=== PATIENT | female | born 1975 | race Caucasian/White ===

== ENCOUNTER 2017-12-15 16:39 | Emergency (ER) | payer MEDICAID | END 2017-12-15 18:00 | disposition left against medical advice (07) | LOC: ER 16:39 | DX: Z53.21 Procedure and treatment not carried out due to patient leaving prior to being seen by health care provider (principal); R42 Dizziness and giddiness ==

== ENCOUNTER 2018-02-26 09:36 | Emergency (ER) | payer SELFPAY ==
--- NOTE | 2018-02-26 10:56 | ER Document Report ---
ED Suture/Wound Recheck - General Chief Complaint: Staple Removal Stated Complaint: SUTURE REMOVAL Time Seen by Provider: 02/26/18 09:47 Mode of Arrival: Ambulatory Information source: Patient TRAVEL OUTSIDE OF THE [place].S. IN LAST 30 DAYS: No - HPI Patient complains to provider of: STAPLE REMOVAL Notes: Patient is here to have emilie removed. The patient had brain cancer and had brain surgery several weeks ago. She has since followed up with her brain surgeon and had the emilie from her main incision removed. She states that there are 3 emilie left in another incision in the longer part of her hair that they forgot to take out and she is here to have them removed. She denies any fevers. She denies any drainage. No pain. She denies any nausea, vomiting , diarrhea. Patient does report that she is having some anxiety but states that she has been feeling better as far as her anxiety goes and she states that that is why her heart rate has been high. She denies any other complaints at this time. - Related Data Allergies/Adverse Reactions: No Known Allergies Allergy (Verified 06/18/15 16:56) Past Medical History - Social History Smoking Status: Former Smoker Chew tobacco use (# tins/day): No Frequency of alcohol use: None Drug Abuse: None Family History: Arthritis, CAD, CVA, DM, Hyperlipidemia, Hypertension, Malignancy, Thyroid Disfunction Patient has suicidal ideation: No Patient has homicidal ideation: No - Past Medical History Cardiac Medical History: Denies: Hx Heart Attack, Hx Hypertension Pulmonary Medical History: Reports: Hx Asthma, Hx Bronchitis, Hx Pneumonia Denies: Hx COPD Neurological Medical History: Reports: Hx Migraine. Denies: Hx Seizures Renal/ Medical History: Denies: Hx Peritoneal Dialysis Musculoskeltal Medical History: Denies Hx Arthritis Psychiatric Medical History: Reports: Hx Anxiety, Hx Attention Deficit Hyperactivity Disorder, Hx Depression - Major depressive d/o Traumatic Medical History: Reports: Hx Traumatic Brain Injury Past Surgical History: Reports: Hx Adenoidectomy, Hx Hysterectomy - 09/29/12, Hx Tonsillectomy - addenoids - Immunizations Immunizations up to date: No Hx Diphtheria, Pertussis, Tetanus Vaccination: No - unsure Review of Systems - Review of Systems -: Yes All other systems reviewed and negative Physical Exam - Vital signs Vitals: Temp Pulse Resp BP Pulse Ox 98.5 F 133 H 18 116/61 98 02/26/18 09:41 02/26/18 09:41 02/26/18 09:41 02/26/18 09:41 02/26/18 09:41 - Notes Notes: GENERAL: alert, cooperative, nontoxic, no distress. HEAD: normocephalic, atraumatic EYES: conjunctiva pink without discharge, no external redness or swelling. EARS: no external swelling, no external redness NOSE: atraumatic, no external swelling MOUTH/THROAT: mucous membranes moist and pink NECK: soft, supple, full range of motion, no meningismus. CHEST: no distress, lungs clear and equal throughout. No wheezing, rales, rhonchi. CARDIAC: regular rhythm, tachycardia, no murmur, normal capillary refill, normal pulses. BACK: full range of motion, no CVA tenderness. EXTREMITIES: full range of motion of all extremities. No redness, no swelling. NEURO: alert and oriented 3, no focal deficits, full range of motion of all extremities. PYSCH: appropriate mood, affect. Patient is cooperative. SKIN: pink, warm, dry, no rash. 3 emilie to the posterior scalp. Wound is well-healed. There is no surrounding redness or drainage. No tenderness. Course - Re-evaluation Re-evalutation: 02/26/18 10:54 Patient is nontoxic appearing with stable vitals. Here to have 3 emilie removed from the back of her head. She had brain cancer and had surgery several weeks ago. She had emilie from her main incision removed but they accidentally forgot to remove 3 emilie in the posterior aspect of her head. No complaints. Wound is well-healed. [place] were removed without difficulty. Patient is noted to be tachycardic, she states that she has been very anxious ever since having the surgery and the diagnosis and that this is the reason for her tachycardia. She denies any chest pain or shortness of breath at this time. She does not want any further workup regarding the tachycardia. Patient will be instructed to follow-up with her doctor at the next available appointment, follow-up sooner for worsening pain, fever, numbness, tingling, weakness, any further concerns. The patient's emergency department workup and current diagnosis were explained to the patient and or family. Follow-up instructions were provided. Medications if prescribed were discussed. Instructions for when to return to the emergency department including specific worrisome symptoms were discussed with the patient and/or family. - Vital Signs Vital signs: Temp Pulse Resp BP Pulse Ox 98.5 F 133 H 18 116/61 98 02/26/18 09:41 02/26/18 09:41 02/26/18 09:41 02/26/18 09:41 02/26/18 09:41 Procedures - Additional Procedures STAPLE REMOVAL Notes: 02/26/18 10:56 3 emilie removed from the posterior scalp. Patient tolerated procedure well with no immediate complications. Discharge - Discharge Clinical Impression: Encounter for staple removal Condition: Stable Disposition: HOME, SELF-CARE Instructions: Staple Removal ([facility]) Additional Instructions: Follow-up with your primary care doctor and your neurosurgeon at the next available appointment. Follow-up sooner for worsening symptoms, high fever, pain, drainage, persistent vomiting, or for any further concerns.
[2018-02-26 11:02] VITALS: BP 117/62
== END 2018-02-26 11:12 | disposition home or self-care (01) ==
LOC: ER 09:36
DX: Z48.02 Encounter for removal of sutures (principal); Z98.890 Other specified postprocedural states; Z87.891 Personal history of nicotine dependence; J45.909 Unspecified asthma, uncomplicated
CPT/HCPCS: 99282

== ENCOUNTER 2018-02-27 14:54 | Emergency (ER) | payer MEDICAID ==
[2018-02-27] MEDS ORDERED: VANCOMYCIN HCL INJ 1000 MG VIAL IV ONE (15:04)
[2018-02-27] MEDS ORDERED: PIPERACILLIN/TAZOBACTAM 4.5 GM VIAL IV ONE (15:04)
[2018-02-27] MEDS ORDERED: LORAZEPAM INJ 2 MG/1 ML VIAL IV ONE ×4 (15:24→19:17)
[2018-02-27] MEDS ORDERED: LIDOCAINE 1% INJ-PF (10 MG/ML) 30 ML SDV INJ ONE (15:33)
--- NOTE | 2018-02-27 15:33 | ER Document Report ---
ED General - General Stated Complaint: FEVER Mode of Arrival: Medic Information source: Emergency Med Personnel, Outside Facility Records TRAVEL OUTSIDE OF THE U.S. IN LAST 30 DAYS: No - HPI Notes: 42-year-old female presents via EMS today who is obtunded with a fever of 106 for evaluation. [facility] is where pt had brain surgery for removal of a glioblastoma approximately 3-4 weeks ago, was seen in the ER yesterday for staple removal is acting normally. Friend stopped by her house today to check on her, states that she was not "acting right" per EMS reports. She called 911. Patient given 1 g of Tylenol rectally transport to hospital by EMS. To obtain history due to patient's not being able to speak at this time. There isn' t any family or friends to speak with about her current medical condition - Related Data Allergies/Adverse Reactions: No Known Allergies Allergy (Verified 06/18/15 16:56) Past Medical History - Social History Smoking Status: Unknown if Ever Smoked Family History: Arthritis, CAD, CVA, DM, Hyperlipidemia, Hypertension, Malignancy, Thyroid Disfunction - Past Medical History Cardiac Medical History: Denies: Hx Heart Attack, Hx Hypertension Pulmonary Medical History: Reports: Hx Asthma, Hx Bronchitis, Hx Pneumonia Denies: Hx COPD Neurological Medical History: Reports: Hx Migraine. Denies: Hx Seizures Renal/ Medical History: Denies: Hx Peritoneal Dialysis Musculoskeltal Medical History: Denies Hx Arthritis Psychiatric Medical History: Reports: Hx Anxiety, Hx Attention Deficit Hyperactivity Disorder, Hx Depression - Major depressive d/o Traumatic Medical History: Reports: Hx Traumatic Brain Injury Past Surgical History: Reports: Hx Adenoidectomy, Hx Hysterectomy - 09/29/12, Hx Tonsillectomy - addenoids - Immunizations Immunizations up to date: No Hx Diphtheria, Pertussis, Tetanus Vaccination: No - unsure Review of Systems - Review of Systems -: Yes ROS unobtainable due to patient's medical condition Physical Exam - Vital signs Vitals: Temp Pulse Resp BP Pulse Ox 100.5 F H 138 H 22 H 140/84 H 98 02/27/18 15:05 02/27/18 15:05 02/27/18 15:05 02/27/18 15:05 02/27/18 15:05 - Notes Notes: PHYSICAL EXAMINATION: GENERAL: obtunded HEAD: Atraumatic, normocephalic. EYES: Pupils equal round and reactive to light, conjunctiva are normal. ENT: Nares patent, oropharynx clear without exudates. Moist mucous membranes. NECK: Normal range of motion, supple without lymphadenopathy LUNGS: Breath sounds clear to auscultation bilaterally and equal. No wheezes rales or rhonchi. HEART: Tachycardia rhythm without murmurs ABDOMEN: Soft, nontender, nondistended abdomen. No guarding, no rebound. No masses appreciated. Female : deferred Musculoskeletal: Normal range of motion, no pitting or edema. No cyanosis. NEUROLOGICAL: Obtunded, PERRL. Responding to noxious stimuli omly GCS 7, when she yelling, GCS 12 PSYCH: Normal mood, normal affect. SKIN: Warm, Dry, normal turgor, no rashes or lesions noted. - Neurological Neuro grossly intact: No Cognition: Other - obtunded [place] Coma Scale Eye Opening: To Pain [place] Coma Scale Verbal: None Teto Coma Scale Motor: Withdraws to Pain Teto Coma Scale Total: 7 Speech: Other - spoke clearly not on command, only when she sat up and yelled "God, God, God". Course - Re-evaluation Re-evalutation: 02/27/18 18:30 42-year-old female who presents status post brain surgery for glioblastoma resection via EMS who is obtunded on initial exam. Patient takes home medications of Ambien, Klonopin, hydrocodone and dexamethasone. Due to GCS of 7 , Dr Jarred Manrique, ER attending at bedside to assist in evaluation of patient CT head orderded. Pt Appears to be seizing. 4mg of ativan orderd. patient is being set up to go down to CT for scan, patient suddenly sat up and yelled "God , God, God" and started to get out of bed. Patient started to spit and kick. Another 2 mg IVP of Ativan ordered by Dr. Manrique verbally. Pt still trying to fight and kick. Patient trying to get out of bed. Soft restraints placed to keep patient in bed so she is not on herself or others. After reassessment 10 minutes later, still thrashing around in bed, 2 mg of Ativan given to help with agitation to use. Patient given 150 mg of Keppra IV. Patient still agitated, is not sedated enough to get a CT of her head. Although 5 mg given IV 10 mg of Decadron ordered. After approximately 40 minutes, patient was sedated enough to get a CT of her head. 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 Lactic is 5.6, CBC with a white count of 8.6. Venous blood glass gas shows respiratory alkalosis. Urinalysis shows leukocytosis. Patient given Zosyn and vancomycin coverage due to concern of sepsis with a fever of 103. With a lactic of 5.6 with a lactic of 5.6. [facility] were patient had here brain surgery performed. [facility] contacted at 1640, spoke with Dr. Gomez Hill, neurosurgeon at [facility] stated he will accept patient for transfer into the neuro ICU, stated she likely was having a seizure and is questionable of any abscess regrowth of a neoplasm, agreed with dosing her 150 mg of Keppra and Ativan and Haldol for agitation in order to get CT. Advised against lumbar puncture, will evaluate patient when she arrives at [facility]. Emtala formed and signed. pt will be tranferring to [facility] at approximately 1930 - Vital Signs Vital signs: Temp Pulse Resp BP Pulse Ox 97.6 F 98 17 107/77 98 02/27/18 21:22 02/27/18 17:53 02/27/18 21:22 02/27/18 21:22 02/27/18 21:22 - Laboratory Result Diagrams: 02/27/18 15:16 02/27/18 15:16 Laboratory results interpreted by me: 02/27/18 02/27/18 02/27/18 15:15 15:16 15:16 Hgb 11.9 L Hct 35.7 L RDW 17.9 H Band Neutrophils % 8 H Metamyelocytes % 2 H VBG pH VBG pCO2 Sodium 136.7 L Carbon Dioxide 20 L Glucose 259 H POC Glucose 242 H Lactic Acid Direct Bilirubin 0.5 H ALT 68 H Total Protein 5.7 L Urine Glucose (UA) Urine Ketones Urine Blood 02/27/18 02/27/18 02/27/18 15:16 15:40 16:25 Hgb Hct RDW Band Neutrophils % Metamyelocytes % VBG pH 7.46 H VBG pCO2 32.6 L Sodium Carbon Dioxide Glucose POC Glucose Lactic Acid 5.7 H Direct Bilirubin ALT Total Protein Urine Glucose (UA) >=500 H Urine Ketones TRACE H Urine Blood SMALL H 02/27/18 19:13 Hgb Hct RDW Band Neutrophils % Metamyelocytes % VBG pH VBG pCO2 Sodium Carbon Dioxide Glucose POC Glucose Lactic Acid 2.3 H Direct Bilirubin ALT Total Protein Urine Glucose (UA) Urine Ketones Urine Blood - EKG Interpretation by Me EKG shows normal: Sinus rhythm Rate: Normal Rhythm: NSR Discharge - Discharge Clinical Impression: Seizure-like activity, Neoplasm of brain Condition: Stable Disposition: [facility]
[2018-02-27 15:40] LABS: HEMATOCRIT 35.7 % (36.0-47.0); HEMOGLOBIN 11.9 g/dL (12.0-15.5); MEAN CORPUSCULAR HEMOGLOBIN 30.9 pg (27.0-33.4); MEAN CORPUSCULAR HGB CONC 33.3 g/dL (32.0-36.0); MEAN CORPUSCULAR VOLUME 93 fl (80-97); PLATELET COUNT 378 10^3/uL (150-450); RED BLOOD COUNT 3.85 10^6/uL (3.72-5.28); RED CELL DISTRIBUTION WIDTH 17.9 % (11.5-14.0); WHITE BLOOD COUNT 8.8 10^3/uL (4.0-10.5)
[2018-02-27] MEDS: NORMAL SALINE 1000 ML 1,000 ML IV PRN ×2 (15:46→17:26)
[2018-02-27] MEDS ORDERED: HALOPERIDOL LACTATE INJ 5 MG/1 ML VIAL IV ONE ×2 (15:52→19:17)
[2018-02-27] MEDS ORDERED: DEXAMETHASONE SOD PHOS INJ 10 MG/1 ML VIAL IV ONE (15:53)
[2018-02-27 15:55] LABS: ALANINE AMINOTRANSFERASE 68 U/L (9-52); ALBUMIN 3.6 g/dL (3.5-5.0); ALKALINE PHOSPHATASE 41 U/L (38-126); ANION GAP 16 (5-19); ASPARTATE AMINO TRANSFERASE 35 U/L (14-36); BILIRUBIN,DIRECT 0.5 mg/dL (0.0-0.4); BILIRUBIN,TOTAL 0.6 mg/dL (0.2-1.3); BLOOD UREA NITROGEN 18 mg/dL (7-20); CALCIUM 8.5 mg/dL (8.4-10.2); CARBON DIOXIDE 20 mmol/L (22-30); CHLORIDE 101 mmol/L (98-107); GLUCOSE 259 mg/dL (75-110); SODIUM 136.7 mmol/L (137-145); TOTAL PROTEIN 5.7 g/dL (6.3-8.2)
[2018-02-27 15:58] LABS: ABSOLUTE LYMPHOCYTES# (MANUAL) 1.8 10^3/uL (0.5-4.7); ABSOLUTE MONOCYTES # (MANUAL) 0.3 10^3/uL (0.1-1.4); ABSOLUTE NEUTROPHILS# (MANUAL) 6.7 10^3/uL (1.7-8.2); BAND NEUTROPHILS % (MANUAL) 8 % (3-5); BASOPHILS % (MANUAL) 0 % (0-2); EOSINOPHILS % (MANUAL) 0 % (0-6); INTERNATIONAL RATION (INR) 0.84; LYMPHOCYTES % (MANUAL) 21 % (13-45); METAMYELOCYTES % (MANUAL) 2 % (0); MONOCYTES % (MANUAL) 3 % (3-13); PROTHROMBIN TIME 11.9 SEC (11.4-15.4); SEGMENTED NEUTROPHILS % (MAN) 66 % (42-78); TOTAL CELLS COUNTED 100
[2018-02-27 15:59] LABS: APPEARANCE,URINE CLEAR; BILIRUBIN,URINE NEGATIVE (NEGATIVE); COLOR,URINE YELLOW; GLUCOSE, URINE >=500 mg/dL (NEGATIVE); KETONES,URINE TRACE mg/dL (NEGATIVE); LEUKOCYTE ESTERASE,URINE NEGATIVE (NEGATIVE); NITRITE,URINE NEGATIVE (NEGATIVE); PROTEIN,URINE NEGATIVE (NEGATIVE); URINE SPECIFIC GRAVITY 1.015; UROBILINOGEN,URINE NEGATIVE mg/dL (<2.0)
[2018-02-27 16:01] LABS: TOXIC GRANULATION SLIGHT
[2018-02-27 16:02] LABS: ANISOCYTOSIS 1+; PLATELET COMMENT ADEQUATE; PLATELET LARGE PRESENT; POLYCHROMASIA SLIGHT
[2018-02-27] MEDS ORDERED: LEVETIRACETAM INJ/PF 500 MG/5 ML SDV IV ONE (16:34)
[2018-02-27 16:35] LABS: VENOUS BLOOD BASE EXCESS -0.8 mmol/L; VENOUS BLOOD HCO3 22.5 mmol/L (20-32); VENOUS BLOOD PCO2 32.6 mmHg (35-63); VENOUS BLOOD PH 7.46 (7.30-7.42)
--- NOTE | 2018-02-27 17:06 | RADIOLOGY REPORT (SQ) ---
EXAM DESCRIPTION: CHEST SINGLE VIEW COMPLETED DATE/TIME: 02/27/2018 4:49 pm REASON FOR STUDY: fever COMPARISON: 06/18/2015 EXAM PARAMETERS: NUMBER OF VIEWS: One view. TECHNIQUE: Single frontal radiographic view of the chest acquired. RADIATION DOSE: NA LIMITATIONS: None. FINDINGS: LUNGS AND PLEURA: No opacities, masses or pneumothorax. No pleural effusion. MEDIASTINUM AND HILAR STRUCTURES: No masses. Contour normal. HEART AND VASCULAR STRUCTURES: Heart normal in size. Normal vasculature. BONES: No acute findings. HARDWARE: None in the chest. OTHER: No other significant finding. IMPRESSION: NO ACUTE RADIOGRAPHIC FINDING IN THE CHEST. TECHNICAL DOCUMENTATION: JOB ID: [id number] [employer]- All Rights Reserved Reading location - IP/workstation name: [email or web address]
--- NOTE | 2018-02-27 17:12 | RADIOLOGY REPORT (SQ) ---
EXAM DESCRIPTION: CT HEAD WITHOUT COMPLETED DATE/TIME: 02/27/2018 4:51 pm REASON FOR STUDY: AMS COMPARISON: 07/16/2013 TECHNIQUE: Axial images acquired through the brain without intravenous contrast. Images reviewed wi th bone, brain and subdural windows. Additional sagittal and coronal reconstructions were generated. Images stored on PACS. All CT scanners at this facility use dose modulation, iterative reconstruction, and/or weight based d osing when appropriate to reduce radiation dose to as low as reasonably achievable (ALARA). [facility]: Dose Right [facility]: CareDose [facility]: Dose Right [facility]: Teradose 4D [facility]: [employer] RADIATION DOSE: CT Rad equipment meets quality standard of care and radiation dose reduction techniq ues were employed. CTDIvol: 53.2 mGy. DLP: 964 mGy-cm. mGy. LIMITATIONS: None. FINDINGS: VENTRICLES: Normal size and contour. CEREBRUM: There is an area of decreased attenuation in the deep right alevism lobe. There is mild ass ociated mass effect. This is best seen on image 15. Otherwise, there is normal kramer/ white different iation. CEREBELLUM: No masses. No hemorrhage. No alteration of density. No evidence for acute infarction. EXTRAAXIAL SPACES: No fluid collections. No masses. ORBITS AND GLOBE: No intra- or extraconal masses. Normal contour of globe without masses. CALVARIUM: Craniotomy changes are present in the right temporal area. PARANASAL SINUSES: No fluid or mucosal thickening. SOFT TISSUES: No mass or hematoma. OTHER: No other significant finding. IMPRESSION: Surgical changes with an area of decreased attenuation in the right temporal lobe. Ther e is associated mass effect medially concerning for neoplasm. It would be helpful to be able to comp are this with some recent imaging studies. EVIDENCE OF ACUTE STROKE: NO. COMMENT: Quality ID # [id number]: Final reports with documentation of one or more dose reduction techniques (e.g., Automated exposure control, adjustment of the mA and/or kV according to patient size, use of iterative reconstruction technique) TECHNICAL DOCUMENTATION: JOB ID: [id number] [employer]- All Rights Reserved Reading location - IP/workstation name: [email or web address]
--- NOTE | 2018-02-27 18:25 | EKG REPORT ---
SEVERITY:- ABNORMAL ECG - SINUS TACHYCARDIA PROBABLE LEFT ATRIAL ABNORMALITY BORDERLINE LEFT AXIS DEVIATION BORDERLINE T WAVE ABNORMALITIES : Confirmed by: Jhonatan Staples MD 27-Feb-2018 18:24:57
--- NOTE | 2018-02-27 20:39 | ER Document Report ---
Doctor's Note Notes: 02/27/18 20:36 Patient examined immediately at request of BRASS BURNISHER for AMS and concern. Pt s/p brain sx for brain tumor. Patient was erratic. Pt with repetitive speech and tremors. Possiblly seizing. Verbal order for ativan was given. Soft restraints ordered. Keppra advised. Please see BRASS BURNISHER notes for further details.
[2018-02-27 21:25] VITALS: BP 107/77
[2018-02-27] MEDS ORDERED: LEVETIRACETAM 1500 MG/NACL-ISO 1,500 MG/100 ML RTUPB IV SCH (22:00)
== END 2018-02-27 21:44 | disposition short-term general hospital (02) ==
LOC: ER 14:54
DX: R56.9 Unspecified convulsions (principal); D43.2 Neoplasm of uncertain behavior of brain, unspecified; R50.9 Fever, unspecified; Z87.820 Personal history of traumatic brain injury; Z90.710 Acquired absence of both cervix and uterus
CPT/HCPCS: 93005; 96376; 99285; 96361; 96375; 96365; 96367; 36415; 87040; 87086; 82962; 85025; 85610; 80053; 81001; 82803; 83605; 71045; 70450; 93010; J1630; J2060; J7030; J3370; J1953; J1100; J2543

== ENCOUNTER 2018-06-27 06:12 | Emergency (ER) | payer MEDICAID ==
[2018-06-27] MEDS ORDERED: NORMAL SALINE 500 ML IV ONE (07:21)
[2018-06-27] MEDS ORDERED: LIDOCAINE 5% (700 MG) TRANSDERMAL ADH..PATCH TP ONE (07:22)
[2018-06-27 07:59] LABS: ABSOLUTE EOSINOPHILS # (AUTO) 0.1 10^3/uL (0.0-0.6); ABSOLUTE LYMPHOCYTES (AUTO) 1.6 10^3/uL (0.5-4.7); ABSOLUTE MONOCYTES (AUTO) 0.3 10^3/uL (0.1-1.4); ABSOLUTE NEUT (AUTO) 3.3 10^3/uL (1.7-8.2); BASOPHILS % (AUTO) 0.8 % (0-2); EOSINOPHILS % (AUTO) 1.5 % (0-6); HEMATOCRIT 35.2 % (36.0-47.0); HEMOGLOBIN 11.9 g/dL (12.0-15.5); LYMPHOCYTES % (AUTO) 30.5 % (13-45); MEAN CORPUSCULAR HEMOGLOBIN 32.8 pg (27.0-33.4); MEAN CORPUSCULAR HGB CONC 33.8 g/dL (32.0-36.0); MEAN CORPUSCULAR VOLUME 97 fl (80-97); MONOCYTES % (AUTO) 5.9 % (3-13); PLATELET COUNT 316 10^3/uL (150-450); RED BLOOD COUNT 3.62 10^6/uL (3.72-5.28); RED CELL DISTRIBUTION WIDTH 20.3 % (11.5-14.0); SEGMENTED NEUTROPHILS % (AUTO) 61.3 % (42-78); TOTAL CELLS COUNTED % (AUTO) 100 %; WHITE BLOOD COUNT 5.3 10^3/uL (4.0-10.5)
[2018-06-27 08:12] LABS: AMORPHOUS SEDIMENT,URINE TRACE /HPF; APPEARANCE,URINE CLOUDY; BILIRUBIN,URINE NEGATIVE (NEGATIVE); COLOR,URINE YELLOW; GLUCOSE, URINE NEGATIVE (NEGATIVE); KETONES,URINE NEGATIVE (NEGATIVE); LEUKOCYTE ESTERASE,URINE TRACE (NEGATIVE); NITRITE,URINE NEGATIVE (NEGATIVE); PROTEIN,URINE NEGATIVE (NEGATIVE); URINE SPECIFIC GRAVITY 1.014; UROBILINOGEN,URINE NEGATIVE mg/dL (<2.0)
[2018-06-27 08:19] LABS: ALANINE AMINOTRANSFERASE 58 U/L (9-52); ALBUMIN 3.1 g/dL (3.5-5.0); ALKALINE PHOSPHATASE 69 U/L (38-126); ANION GAP 5 (5-19); ASPARTATE AMINO TRANSFERASE 33 U/L (14-36); BILIRUBIN,DIRECT 0.2 mg/dL (0.0-0.4); BILIRUBIN,TOTAL 0.4 mg/dL (0.2-1.3); BLOOD UREA NITROGEN 13 mg/dL (7-20); CALCIUM 8.6 mg/dL (8.4-10.2); CARBON DIOXIDE 33 mmol/L (22-30); CHLORIDE 102 mmol/L (98-107); CREATINE KINASE < 20 U/L (30-135); GLUCOSE 92 mg/dL (75-110); LIPASE 97.1 U/L (23-300); POTASSIUM 3.1 mmol/L (3.6-5.0); TOTAL PROTEIN 5.8 g/dL (6.3-8.2)
[2018-06-27] MEDS ORDERED: ACETAMINOPHEN 325 MG TABLET PO ONE (08:21)
[2018-06-27] MEDS ORDERED: IPRATROPIUM/ALBUTEROL 0.5-2.5 MG/3 ML AMPUL NEB ONE (08:29)
--- NOTE | 2018-06-27 09:38 | ER Document Report ---
ED General - General Chief Complaint: Leg Pain Stated Complaint: BACK PAIN Time Seen by Provider: 06/27/18 06:37 TRAVEL OUTSIDE OF THE [place].S. IN LAST 30 DAYS: No - HPI Patient complains to provider of: Back pain leg pain Notes: There is coming in for back pain. Patient states has history of neck pain no acute trauma. Patient also coming in for leg pain. Patient was recently seen at [facility] diagnosed with cellulitis that she was placed on clindamycin approximately 5-7 days ago. Patient states that her legs continue to hurt. Denies any fevers chills nausea vomiting diarrhea. Patient does have a history of a tumor in the brain. Patient resides at a assisted living facility in [place] however his in area visiting her family members. There are no family members at bedside. - Related Data Allergies/Adverse Reactions: No Known Allergies Allergy (Verified 06/18/15 16:56) Past Medical History - Social History Smoking Status: Current Some Day Smoker Chew tobacco use (# tins/day): No Drug Abuse: None Family History: Arthritis, CAD, CVA, DM, Hyperlipidemia, Hypertension, Malignancy, Thyroid Disfunction Patient has suicidal ideation: No Patient has homicidal ideation: No - Past Medical History Cardiac Medical History: Denies: Hx Heart Attack, Hx Hypertension Pulmonary Medical History: Reports: Hx Asthma, Hx Bronchitis, Hx Pneumonia Denies: Hx COPD Neurological Medical History: Reports: Hx Migraine. Denies: Hx Seizures Renal/ Medical History: Denies: Hx Peritoneal Dialysis Musculoskeletal Medical History: Denies Hx Arthritis Psychiatric Medical History: Reports: Hx Anxiety, Hx Attention Deficit Hyperactivity Disorder, Hx Depression - Major depressive d/o Traumatic Medical History: Reports: Hx Traumatic Brain Injury Past Surgical History: Reports: Hx Adenoidectomy, Hx Hysterectomy, Hx Tonsillectomy - addenoids - Immunizations Immunizations up to date: No Hx Diphtheria, Pertussis, Tetanus Vaccination: No - unsure Review of Systems - Review of Systems Constitutional: No symptoms reported EENT: No symptoms reported Cardiovascular: No symptoms reported Respiratory: No symptoms reported Gastrointestinal: No symptoms reported Genitourinary: No symptoms reported Female Genitourinary: No symptoms reported Musculoskeletal: Back pain Skin: Other - Cellulitic process in the left leg Hematologic/Lymphatic: No symptoms reported Neurological/Psychological: No symptoms reported Physical Exam - Vital signs Vitals: Temp Pulse Resp BP Pulse Ox 98.2 F 100 20 128/60 H 96 06/27/18 06:18 06/27/18 06:18 06/27/18 06:18 06/27/18 06:18 06/27/18 06:18 Interpretation: Normal - General General appearance: Appears well, Alert - HEENT Head: Normocephalic, Atraumatic Eyes: Normal Pupils: PERRL - Respiratory Respiratory status: No respiratory distress Chest status: Nontender Breath sounds: Normal Chest palpation: Normal - Cardiovascular Rhythm: Regular Heart sounds: Normal auscultation Murmur: No - Abdominal Inspection: Normal Distension: No distension Bowel sounds: Normal Tenderness: Nontender Organomegaly: No organomegaly - Back Back: Normal, Tender - Bilateral paraspinal tenderness - Extremities General upper extremity: Normal inspection, Nontender, Normal color, Normal ROM , Normal temperature General lower extremity: Nontender, Edema - 1+ bilaterally, Normal color, Normal ROM, Normal temperature, Normal weight bearing. No: Normal inspection - Patient was silhouetting process the left lower extremity mid lateral calf with warmth there is a small open wound and is not draining any purulent material. Area of erythema is approximately 10 cm x 8 cm. Areas warm consistent with cellulitis, Isabelle's sign - Neurological Neuro grossly intact: Yes Cognition: Normal Orientation: AAOx4 Media Coma Scale Eye Opening: Spontaneous Media Coma Scale Verbal: Oriented Teto Coma Scale Motor: Obeys Commands Teto Coma Scale Total: 15 Speech: Normal Motor strength normal: LUE, RUE, LLE, RLE Sensory: Normal - Psychological Associated symptoms: Normal affect, Normal mood - Skin Skin Temperature: Warm Skin Moisture: Dry Skin Color: Normal Course - Re-evaluation Re-evalutation: 06/27/18 14:21 Patient coming in for back pain and evaluation of her similarly process. Patient states she is unaware if the site is getting better or worse. States compliance with her antibiotics. Because this laboratory studies were performed looking for leukocytosis this did return negative. Patient after administration of analgesia was found sleeping is arousable. Patient able to ambulate no critical pathology seen this time. Patient was discharged home follow with primary care physician. 06/27/18 14:22 06/27/18 14:22 The patient presents with low back pain without signs of spinal cord compression , cauda equina syndrome, infection, aneurysm, or other serious etiology. The patient is neurologically intact. Given the extremely low risk of these diagnoses further testing and evaluation for these possibilities does not appear to be indicated at this time. The patient has been instructed to return if the symptoms worsen or change in any way. - Vital Signs Vital signs: Temp Pulse Resp BP Pulse Ox 98.2 F 100 20 128/60 H 96 06/27/18 06:18 06/27/18 06:18 06/27/18 06:18 06/27/18 06:18 06/27/18 06:18 - Laboratory Result Diagrams: 06/27/18 07:37 06/27/18 07:37 Laboratory results interpreted by me: 06/27/18 06/27/18 06/27/18 07:37 07:37 07:37 RBC 3.62 L Hgb 11.9 L Hct 35.2 L RDW 20.3 H Potassium 3.1 L Carbon Dioxide 33 H Lactic Acid 2.6 H ALT 58 H Creatine Kinase < 20 L Total Protein 5.8 L Albumin 3.1 L Ur Leukocyte Esterase 06/27/18 07:57 RBC Hgb Hct RDW Potassium Carbon Dioxide Lactic Acid ALT Creatine Kinase Total Protein Albumin Ur Leukocyte Esterase TRACE H Discharge - Discharge Clinical Impression: Cellulitis Qualifiers: Site of cellulitis: extremity Site of cellulitis of extremity: lower extremity Laterality: unspecified laterality Qualified Code(s): L03.119 - Cellulitis of unspecified part of limb Back pain Qualifiers: Back pain location: low back pain Chronicity: chronic Sciatica presence: without sciatica Condition: Good Disposition: HOME, SELF-CARE Instructions: Low Back Pain ([facility]), Ice Packs ([facility]), Ice & Elevation ([facility]), Anti -Inflammatory Medication ([facility]), Acetaminophen, Cellulitis ([facility]) Additional Instructions: Your evaluation today that showed continued cellulitis of the lower extremities however at this time your laboratory studies show no signs of significant infection. I would highly recommend she follow-up with your primary care provider. I will extend out your course of clindamycin for another 5 days. Return to ER symptoms worsen. We recommend taking anti-inflammatory medications Tylenol along with the lidocaine patches provided for you here in ER for your lower back pain. Prescriptions: Clindamycin HCl [Cleocin 150 mg Capsule] 150 mg PO Q6 #20 capsule Lidocaine [Lidoderm 5% (700 mg) Transdermal Patch] 1 patch TP DAILY #30 adh..patch Referrals: AAKASH MADRIGAL MD [Primary Care Provider] - Follow up as needed
[2018-06-27 10:06] VITALS: BP 120/71
== END 2018-06-27 10:05 | disposition home or self-care (01) ==
LOC: ER 06:12
DX: L03.119 Cellulitis of unspecified part of limb (principal); M54.9 Dorsalgia, unspecified; M79.606 Pain in leg, unspecified; Z90.710 Acquired absence of both cervix and uterus
CPT/HCPCS: 94640; 99283; 96360; 36415; 82550; 83690; 85025; 80053; 81001; 83605; J3490 ×2; J7040; J7620